=== PATIENT | male | born 1980 | race Caucasian/White ===

== ENCOUNTER 2016-04-09 09:36 | Emergency (ER) | payer OTHER ==
[~2016-04-09] VITALS: Ht 182.9 cm; Wt 103.9 kg
[2016-04-09 09:39] VITALS: TEMP 36.4; Ht 182.9 cm; Wt 103.9 kg
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
[2016-04-09 10:41] VITALS: BP 135/93; PULSE 72; O2SAT 95
== END 2016-04-09 10:42 | disposition home or self-care (01) ==
LOC: C.EDB 09:39
DX: T22.442A Corrosion of unspecified degree of left axilla, initial encounter (principal); T22.432A Corrosion of unspecified degree of left upper arm, initial encounter; X14.1XXA Other contact with hot air and other hot gases, initial encounter; T32.0 Corrosions involving less than 10% of body surface